=== PATIENT | male | born 1955 | race African-American/Black ===

== ENCOUNTER 2019-01-14 09:03 | Emergency (ER) | payer OTHER ==
[~2019-01-14] VITALS: Ht 185.4 cm; Wt 59.0 kg
[2019-01-14] MEDS ORDERED: SODIUM CHLORIDE 0.9% 1,000 ML IV ONE (10:37)
[2019-01-14] MEDS ORDERED: ONDANSETRON HCL 4MG/2ML INJ IV STA (10:39)
[2019-01-14] MEDS ORDERED: MORPHINE SULFATE 4 MG/ML CPJ (NOT FOR IM USE) IV STA (10:39)
[2019-01-14 12:03] LABS: BASOPHILS % 1.5 % (0.0-2.0); EOSINOPHILS % 0.5 % (0.0-5.0); HEMATOCRIT. 45.8 % (42.0-52.0); HEMOGLOBIN. 15.1 g/dL (14.0-18.0); LYMPHOCYTES % 13.9 % (20.0-50.0); MEAN CORPUSCULAR VOLUME 100.1 fL (80.0-94.0); MEAN PLATELET VOLUME 8.2 fl (7.4-10.4); MONOCYTES % 11.7 % (2.0-8.0); NEUTROPHILS % 72.4 % (40.0-76.0); PLATELET 151 x1000/uL (130-400); RED BLOOD CELL COUNT 4.58 mill/uL (4.7-6.1); RED CELL DISTRIBUTION WIDTH 13.4 % (11.6-14.6)
[2019-01-14 12:10] LABS: CHLORIDE 102 mEq/L (98-107)
[2019-01-14 12:59] LABS: CLARITY URINE CLEAR (CLEAR); COLOR URINE DARK YELLOW (YELLOW); KETONES URINE TRACE (NEGATIVE); LEUKOCYTE ESTERASE URINE 1+ (NEGATIVE); NITRITE URINE NEGATIVE (NEGATIVE); OCCULT BLOOD URINE NEGATIVE (NEGATIVE); PROTEIN URINE TRACE (NEGATIVE)
[2019-01-14] MEDS ORDERED: IOHEXOL-350 100 ML BOTTLE ONE (13:46)
[2019-01-14] MEDS ORDERED: KETOROLAC 15MG/ML VIAL IV NR (14:15)
[2019-01-14 17:18] VITALS: BP 149/104
== END 2019-01-14 17:50 | disposition home or self-care (01) ==
LOC: ER 09:28
DX: R07.89 Other chest pain (principal); R10.9 Unspecified abdominal pain; J45.909 Unspecified asthma, uncomplicated; I10 Essential (primary) hypertension; F17.200 Nicotine dependence, unspecified, uncomplicated
CPT/HCPCS: 36415; 71045; 71275; 74174; 80053; 81003; 83880; 84484; 85025; 93005; 96361; 96374; 96375; 99284; J1885; J2270; J2405; J7030; Q9967; Z7610

== ENCOUNTER 2019-04-19 13:27 | Inpatient (IN) | payer OTHER ==
[~2019-04-19] VITALS: Ht 180.3 cm; Wt 51.7 kg
[2019-04-19] MEDS ORDERED: SODIUM CHLORIDE 0.9% 1000ML BAG (SEPSIS BOLUS) IV ONE (14:30)
[2019-04-19] MEDS ORDERED: LEVOFLOXACIN 500MG PREMIX 100 ML IV ONE (14:45)
[2019-04-19] MEDS ORDERED: ACETAMINOPHEN 325MG TABLET PO ONE (14:45)
[2019-04-19 15:02] LABS: BG BASE EXCESS 5.2 mmol/L (-2.0-2.0); BG DEOXYHEMOGLOBIN 10.3 % (0.0-5.0); BG FRACTION INSPIRED OXYGEN 21; BG HCO3 ACT 28.9 mmol/L (22.0-26.0); BG METHEMOGLOBIN 0.3 % (0.0-1.5); BG OXYGEN SATURATION 89.5 % (92.0-98.5); BG OXYHEMOGLOBIN 87.4 % (94.0-97.0); BG PCO2 39.4 mmHg (35.0-45.0); BG PH 7.484 (7.350-7.450); BG PO2 56.6 mmHg (75.0-100.0); BG SAMPLE SITE RIGHT BRACHIAL; BG TOTAL HEMOGLOBIN 14.7 g/dL (12.0-18.0); BG VENT MODE ROOM AIR
[2019-04-19 15:15] LABS: HEMATOCRIT. 45.1 % (42.0-52.0); HEMOGLOBIN. 15.4 g/dL (14.0-18.0); MEAN CORPUSCULAR HEMOGLOBIN 33.7 pg (28.0-32.0); MEAN CORPUSCULAR VOLUME 98.8 fL (80.0-94.0); MEAN PLATELET VOLUME 7.4 fl (7.4-10.4); PLATELET 326 x1000/uL (130-400); RED BLOOD CELL COUNT 4.57 mill/uL (4.7-6.1); RED CELL DISTRIBUTION WIDTH 14.5 % (11.6-14.6)
[2019-04-19 15:20] LABS: CHLORIDE 89 mEq/L (98-107)
[2019-04-19] MEDS ORDERED: IPRATROPIUM BROMIDE (0.02%) 0.5MG/2.5ML NEB HHN STA (15:30)
[2019-04-19] MEDS ORDERED: METHYLPREDNISOLONE SOD SUCC 125 MG/2 ML VIAL IV STA (15:30)
[2019-04-19] MEDS ORDERED: MAGNESIUM 2 G PREMIX 50 ML IV ONE (15:30)
[2019-04-19] MEDS ORDERED: ALBUTEROL (0.083%) 2.5MG/3ML NEB HHN STA (15:30)
[2019-04-19 15:35] LABS: PLATELET ESTIMATE NORMAL
[2019-04-19 15:47] LABS: PARTIAL THROMBOPLASTIN TIME 28.5 sec (23.4-31.0)
[2019-04-19] MEDS ORDERED: DIPHENHYDRAMINE 50MG/ML VIAL IV PRN (17:30)
[2019-04-19] MEDS ORDERED: DOCUSATE SODIUM 100MG CAPSULE PO PRN (17:30)
[2019-04-19] MEDS ORDERED: GUAIFENESIN 200MG/10ML SUGAR FREE UDC PO PRN (17:30)
[2019-04-19] MEDS ORDERED: ACETAMINOPHEN 325MG TABLET PO PRN (17:30)
[2019-04-19] MEDS ORDERED: LEVOFLOXACIN 500MG PREMIX 100 ML IV SCH (17:30)
[2019-04-19] MEDS ORDERED: MAGNESIUM/ALUMINUM HYDROXIDE/SIMETHICONE 30ML UDC PO PRN (17:30)
[2019-04-19] MEDS ORDERED: IPRATROPIUM/ALBUTEROL 0.5-3(2.5)MG/3ML NEB INH PRN (17:30)
[2019-04-19] MEDS ORDERED: ONDANSETRON HCL 4MG/2ML INJ IV PRN (17:30)
[2019-04-19 18:29] LABS: PHOSPHORUS 2.9 mg/dL (2.5-4.9)
[2019-04-19 19:41] LABS: CLARITY URINE CLEAR (CLEAR); COLOR URINE DARK YELLOW (YELLOW); KETONES URINE TRACE (NEGATIVE); LEUKOCYTE ESTERASE URINE 1+ (NEGATIVE); NITRITE URINE POSITIVE (NEGATIVE); OCCULT BLOOD URINE NEGATIVE (NEGATIVE); PH URINE 5.5 (4.5-8.0); PROTEIN URINE TRACE (NEGATIVE)
[2019-04-20] VITALS (7 sets, daily range): BP systolic 125–141; BP diastolic 72–99
[2019-04-20] MEDS ORDERED: DEXTROSE 50% WATER 50ML SYRINGE IV PRN (00:30)
[2019-04-20] MEDS: CLONIDINE 0.1MG TABLET PO PRN (00:39)
[2019-04-20] MEDS: HYDROCODONE/ACETAMINOPHEN 5/325MG TABLET PO PRN ×2 (00:40→09:04)
[2019-04-20] MEDS: BLOOD SUGAR DIAGNOSTIC STRIP TEST SCH ×5 (00:54→21:00)
[2019-04-20] MEDS: INSULIN LISPRO 100 UNITS/ML SUBCUT SCH ×5 (01:00→21:00)
[2019-04-20 01:26] LABS: CREATINE KINASE 202 IU/L (39-308)
[2019-04-20] MEDS ORDERED: PNEUMOCOCCAL 23-VAL P-SAC VAC 0.5 ML IM ONE (04:00)
[2019-04-20 06:39] LABS: HEMATOCRIT. 37.6 % (42.0-52.0); MEAN CORPUSCULAR HEMOGLOBIN 34.3 pg (28.0-32.0); MEAN CORPUSCULAR VOLUME 99.1 fL (80.0-94.0); MEAN PLATELET VOLUME 7.4 fl (7.4-10.4); PLATELET 293 x1000/uL (130-400); RED CELL DISTRIBUTION WIDTH 14.2 % (11.6-14.6)
[2019-04-20 06:41] LABS: CHLORIDE 97 mEq/L (98-107)
[2019-04-20 07:02] LABS: LDL CHOLESTEROL 64 mg/dL (5-100)
[2019-04-20 07:03] LABS: CREATINE KINASE 205 IU/L (39-308); HDL CHOLESTEROL 49 mg/dL (40-59)
[2019-04-20] MEDS: ENOXAPARIN 40MG/0.4ML SYR SUBCUT SCH (08:58)
[2019-04-20 14:16] LABS: PLATELET ESTIMATE NORMAL
[2019-04-20] MEDS ORDERED: LORAZEPAM 2MG/ML CPJ IV PRN (14:30)
[2019-04-20] MEDS ORDERED: IPRATROPIUM/ALBUTEROL 0.5-3(2.5)MG/3ML NEB HHN PRN (14:30)
[2019-04-20] MEDS: LEVOFLOXACIN 500MG PREMIX 100 ML IV SCH (15:00)
[2019-04-20 16:05] LABS: HEPATITIS B SURFACE ANTIGEN NEGATIVE
[2019-04-20] MEDS: THIAMINE HCL 100MG TABLET PO SCH (16:30)
[2019-04-20] MEDS: FOLIC ACID 1MG TABLET PO SCH (16:30)
[2019-04-20] MEDS: FAMOTIDINE 20MG/2ML VIAL IV SCH ×2 (16:30→21:02)
[2019-04-20] MEDS: NICOTINE 21MG PATCH TD SCH (16:31)
[2019-04-20 16:34] LABS: HEPATITIS A AB IGM NEGATIVE (NEGATIVE)
[2019-04-21] VITALS: BP 136/79
[2019-04-21 04:00] VITALS: BP 123/87
[2019-04-21] MEDS: BLOOD SUGAR DIAGNOSTIC STRIP TEST SCH ×4 (05:56→21:05)
[2019-04-21] MEDS: INSULIN LISPRO 100 UNITS/ML SUBCUT SCH ×4 (06:43→22:17)
[2019-04-21 08:00] VITALS: BP 148/97
[2019-04-21] MEDS: BUDESONIDE 0.5MG/2ML NEB HHN SCH ×2 (08:45→20:16)
[2019-04-21] MEDS: IPRATROPIUM/ALBUTEROL 0.5-3(2.5)MG/3ML NEB HHN SCH ×3 (08:46→20:16)
[2019-04-21] MEDS: THIAMINE HCL 100MG TABLET PO SCH (09:56)
[2019-04-21] MEDS: FOLIC ACID 1MG TABLET PO SCH (09:56)
[2019-04-21] MEDS: FAMOTIDINE 20MG/2ML VIAL IV SCH ×2 (09:56→20:31)
[2019-04-21] MEDS: ENOXAPARIN 40MG/0.4ML SYR SUBCUT SCH (09:57)
[2019-04-21] MEDS: NICOTINE 21MG PATCH TD SCH (09:57)
[2019-04-21 12:00] VITALS: BP 134/93
[2019-04-21 16:00] VITALS: BP 159/100
[2019-04-21] MEDS: LEVOFLOXACIN 500MG PREMIX 100 ML IV SCH (16:03)
[2019-04-21] MEDS: CLONIDINE 0.1MG TABLET PO PRN ×2 (17:22→20:31)
[2019-04-21 20:00] VITALS: BP 151/102
[2019-04-21] MEDS: HYDROCODONE/ACETAMINOPHEN 5/325MG TABLET PO PRN (23:04)
[2019-04-22] VITALS: BP 139/92
[2019-04-22] MEDS: IPRATROPIUM/ALBUTEROL 0.5-3(2.5)MG/3ML NEB HHN SCH ×2 (01:48→15:04)
[2019-04-22 04:00] VITALS: BP 126/92
[2019-04-22 05:20] LABS: HIV SCREEN 4G Non Reactive (Non Reactive)
[2019-04-22 06:13] LABS: HEMATOCRIT. 37.9 % (42.0-52.0); HEMOGLOBIN. 12.6 g/dL (14.0-18.0); MEAN CORPUSCULAR HEMOGLOBIN 33.6 pg (28.0-32.0); MEAN CORPUSCULAR VOLUME 100.6 fL (80.0-94.0); MEAN PLATELET VOLUME 7.4 fl (7.4-10.4); PLATELET 268 x1000/uL (130-400); RED BLOOD CELL COUNT 3.76 mill/uL (4.7-6.1); RED CELL DISTRIBUTION WIDTH 14.2 % (11.6-14.6)
[2019-04-22 06:21] LABS: CHLORIDE 100 mEq/L (98-107)
[2019-04-22] MEDS: BLOOD SUGAR DIAGNOSTIC STRIP TEST SCH ×2 (06:27→11:55)
[2019-04-22] MEDS: INSULIN LISPRO 100 UNITS/ML SUBCUT SCH ×2 (06:51→11:55)
[2019-04-22 08:00] VITALS: BP 169/104
[2019-04-22] MEDS: FOLIC ACID 1MG TABLET PO SCH (08:34)
[2019-04-22] MEDS: FAMOTIDINE 20MG/2ML VIAL IV SCH (08:35)
[2019-04-22] MEDS: ENOXAPARIN 40MG/0.4ML SYR SUBCUT SCH (08:35)
[2019-04-22] MEDS: THIAMINE HCL 100MG TABLET PO SCH (08:35)
[2019-04-22 08:40] VITALS: BP 146/99
[2019-04-22] MEDS: NICOTINE 21MG PATCH TD SCH (08:45)
[2019-04-22] MEDS: CLONIDINE 0.1MG TABLET PO PRN (08:46)
[2019-04-22] MEDS: HYDROCODONE/ACETAMINOPHEN 5/325MG TABLET PO PRN (08:46)
[2019-04-22] MEDS: BUDESONIDE 0.5MG/2ML NEB HHN SCH (09:09)
[2019-04-22 12:00] VITALS: BP 158/81
[2019-04-22 13:01] VITALS: BP 158/81
[2019-04-22 14:24] LABS: PLATELET ESTIMATE NORMAL
[2019-04-23 13:11] LABS: QFT MITOGEN VALUE 0.28 IU/mL (.); QFT TB GOLD PLUS Indeterminate (Negative); QFT TB1 AG VALUE 0.03 IU/mL (.)
== END 2019-04-22 16:20 | disposition home or self-care (01) | DRG 139 ==
LOC: ER 13:27 → 5WST 15:57 → EDBEDREQSVC 15:59 → EDBEDREQ 15:59 → ENRESERV 20:33
PROVIDERS: ADMIT Internal Medicine; ATTEND Internal Medicine
DX: J18.0 Bronchopneumonia, unspecified organism (principal); J96.01 Acute respiratory failure with hypoxia; E43 Unspecified severe protein-calorie malnutrition; J44.0 Chronic obstructive pulmonary disease with (acute) lower respiratory infection; E87.2 Acidosis; J45.901 Unspecified asthma with (acute) exacerbation; J44.1 Chronic obstructive pulmonary disease with (acute) exacerbation; I10 Essential (primary) hypertension; F17.210 Nicotine dependence, cigarettes, uncomplicated; E11.9 Type 2 diabetes mellitus without complications; E78.5 Hyperlipidemia, unspecified; N39.0 Urinary tract infection, site not specified; K29.20 Alcoholic gastritis without bleeding; F10.10 Alcohol abuse, uncomplicated; K21.9 Gastro-esophageal reflux disease without esophagitis; Z87.09 Personal history of other diseases of the respiratory system; Z79.899 Other long term (current) drug therapy; Z68.1 Body mass index [BMI] 19.9 or less, adult
CPT/HCPCS: 36415; 36600; 71045; 80048; 80061; 82375; 82550; 82805; 82962; 83036; 83605; 83735; 83880; 84100; 84145; 84443; 84484; 86480; 86705; 86709; 86803; 87340; 87389; 87804; 93005; 93970; 94640; 97161; 97165; 99291; J1650; J1815; J1956; J2930; J3475; J3490; J7030; J7050; J7611; J7620; J7626

== ENCOUNTER 2020-12-24 07:00 | Emergency (ER) | payer OTHER ==
[~2020-12-24] VITALS: Ht 182.9 cm; Wt 73.0 kg
[2020-12-24] MEDS ORDERED: SODIUM CHLORIDE 0.9% 1,000 ML IV ONE (07:45)
[2020-12-24 09:29] LABS: HEMATOCRIT. 34.8 % (42.0-52.0); HEMOGLOBIN. 11.6 g/dL (14.0-18.0); MEAN CORPUSCULAR HEMOGLOBIN 30.6 pg (28.0-32.0); MEAN CORPUSCULAR VOLUME 91.7 fL (80.0-94.0); MEAN PLATELET VOLUME 6.8 fl (7.4-10.4); PLATELET 218 x1000/uL (130-400); RED CELL DISTRIBUTION WIDTH 17.6 % (11.6-14.6)
[2020-12-24 09:37] LABS: CHLORIDE 103 mEq/L (98-107)
[2020-12-24 09:39] LABS: PROTHROMBIN TIME 10.7 sec (9.6-11.0)
[2020-12-24 09:42] LABS: ETHANOL BLOOD < 10 mg/dL
[2020-12-24 10:48] LABS: PLATELET ESTIMATE NORMAL
[2020-12-24] MEDS ORDERED: HYDRALAZINE 20MG/ML VIAL IV ONE (18:30)
[2020-12-24 21:45] VITALS: BP 135/91
== END 2020-12-24 21:59 | disposition short-term general hospital (02) ==
LOC: ER 07:23
DX: R56.9 Unspecified convulsions (principal); R41.82 Altered mental status, unspecified; I10 Essential (primary) hypertension; Z20.822 Contact with and (suspected) exposure to COVID-19
CPT/HCPCS: 36415; 70450; 71045; 80053; 80320; 82140; 82962; 83605; 84443; 85025; 85610; 86850; 86900; 86901; 87426; 93005; 96361; 96374; 99285; J0360; J7030; Z7610; G0480